=== PATIENT | male | born 1970 | race Caucasian/White ===

== ENCOUNTER 2016-10-26 12:12 | Outpatient (CLI) | payer OTHER | END 2016-10-26 12:13 | disposition home or self-care (01) | DX: Z00.00 Encounter for general adult medical examination without abnormal findings (principal); Z12.5 Encounter for screening for malignant neoplasm of prostate ==

== ENCOUNTER 2016-12-12 17:00 | Outpatient (CLI) | payer OTHER | END 2016-12-12 17:01 | disposition home or self-care (01) | DX: D72.89 Other specified disorders of white blood cells (principal) ==

== ENCOUNTER 2017-07-27 07:21 | Emergency (ER) | payer OTHER ==
[2017-07-27] MEDS ORDERED: SODIUM CHLORIDE 0.9% 1,000 ML IV ONE (07:51)
--- NOTE | 2017-07-27 07:58 | ED Physician Documentation ---
PD HPI GI BLEED - Stated complaint Stated Complaint: MALE - Chief complaint Chief Complaint: Abd Pain - History obtained from History obtained from: Patient - History of Present Illness Timing - onset: How many days ago (2you) Timing - details: Gradual onset Associated symptoms: BRBPR Similar symptoms before: Has not had sx before - Additional information Additional information: The patient is a 46-year-old male who presents with bright red blood per rectum , that started yesterday, and became more pronounced this morning. He first noticed "stomachache" 2 days ago. He developed bloody diarrhea yesterday, without rectal pain. He reports nausea yesterday, without vomiting. He is uncertain about fever. He denies dysuria. He has a past history of hemorrhoids, but states there is no rectal pain or itchiness associated with this episode, and his hemorrhoids have never had this much bleeding. He has had no abdominal surgery. He denies homosexual intercourse. Review of Systems Constitutional: denies: Chills Nose: denies: Congestion Throat: denies: Sore throat Cardiac: denies: Chest pain / pressure Respiratory: denies: Dyspnea, Cough GI: reports: Abdominal Pain, Nausea, Diarrhea, Bloody / black stool. denies: Vomiting : denies: Dysuria Skin: denies: Rash Musculoskeletal: denies: Back pain Neurologic: denies: Generalized weakness, Headache PD PAST MEDICAL HISTORY - Past Medical History Neuro: Headache/migraine, Head injury - Present Medications Home Medications: Ambulatory Orders Medication Instructions Recorded Confirmed Hydrocortisone Acetate [Anucort-Hc] 25 mg RC BID #10 supp.rect 07/27/17 - Allergies Allergies/Adverse Reactions: Allergies Allergy/AdvReac Type Severity Reaction Status Date / Time No Known Drug Allergies Allergy Verified 07/27/17 07:38 - Social History Does the pt smoke?: No Smoking Status: Never smoker PD ED PE NORMAL - Vitals Vital signs reviewed: Yes (normal) - General General: Alert and oriented X 3, Well developed/nourished - HEENT HEENT: Atraumatic, Pharynx benign - Neck Neck: No adenopathy, No JVD - Cardiac Cardiac: RRR, No murmur - Respiratory Respiratory: No respiratory distress, Clear bilaterally - Abdomen Abdomen: Normal bowel sounds, Soft, Non distended, No organomegaly, Other ( Scaphoid abdomen with mild left lower quadrant tenderness to palpation, without rebound or guarding.) - Back Back: No CVA TTP - Derm Derm: No rash - Extremities Extremities: No edema, No calf tenderness / cord - Neuro Neuro: Alert and oriented X 3, No motor deficit, Normal speech Results - Vitals Vitals: Oxygen O2 Source Room air - Labs Labs: Laboratory Tests 07/27/17 07/27/17 07/27/17 08:13 08:13 08:13 WBC 4.6 L RBC 4.64 L Hgb 15.1 Hct 44.0 MCV 94.7 H MCH 32.5 H MCHC 34.3 RDW 12.4 Plt Count 153 MPV 8.7 Neut # 2.2 Lymph # 1.7 [place] # 0.5 Eos # 0.1 Baso # 0.0 Absolute Nucleated RBC 0.00 Nucleated RBC % 0.0 Sodium 136 Potassium 4.2 Chloride 98 L Carbon Dioxide 29 Anion Gap 9.0 BUN 18 Creatinine 0.8 Estimated GFR (MDRD) 104 Glucose 95 Calcium 9.6 Total Bilirubin 1.7 H AST 30 ALT 53 Alkaline Phosphatase 48 Total Protein 7.0 Albumin 4.5 Globulin 2.5 Albumin/Globulin Ratio 1.8 Lipase 21 L Urine Color YELLOW Urine Clarity CLEAR Urine pH 6.0 Ur Specific [place] 1.025 Urine Protein NEGATIVE Urine Glucose (UA) NEGATIVE Urine Ketones NEGATIVE Urine Occult Blood NEGATIVE Urine Nitrite NEGATIVE Urine Bilirubin NEGATIVE Urine Urobilinogen 0.2 (NORMAL) Ur Leukocyte Esterase NEGATIVE Ur Microscopic Review NOT INDICATED Urine Culture Comments NOT INDICATED - Rads (name of study) CT abd/pelvis w/ Radiology: Prelim report reviewed, EMP read contemporaneously, See rad report ( No acute abnormality in the abdomen or pelvis. No findings to explain the patient's symptoms.) PD MEDICAL DECISION MAKING - ED course Complexity details: reviewed results, re-evaluated patient, considered differential, d/w patient ED course: His rectal bleeding is most consistent with internal hemorrhoid. Diverticular bleeding was considered, but is unlikely given that his CT scan is negative. His hemoglobin and hematocrit are normal, as is his white count. Treatment in the emergency department included administration of normal saline 1 L IV. I discussed with him the likely diagnosis, symptomatic treatment and outpatient follow-up, as well as potentially worrisome signs or symptoms that should prompt reevaluation emergency department. He is being discharged with prescription for Anusol HC. Departure - Departure Disposition: Home, Self Care Clinical Impression: Hemorrhoids Qualifiers: Hemorrhoid type: other Qualified Code(s): K64.8 - Other hemorrhoids Condition: Stable Instructions: ANUSOL Suppositories, ED Hemorrhoids Follow-Up: Molly Menjivar MD [Provider Admit Priv/Credential] - Prescriptions: Hydrocortisone Acetate [Anucort-Hc] 25 mg RC BID #10 supp.rect Comments: Wash your anal area with warm soapy water at least twice daily. You can use Anusol HC twice daily as prescribed. Avoid straining when having bowel movement. Followup with your primary physician within 2 weeks. Call to schedule an appointment. Return to the emergency department if you develop increasing abdominal pain, increasing rectal bleeding, or otherwise worsening symptoms. Discharge Date/Time: 07/27/17 10:17
[2017-07-27 08:25] LABS: BILIRUBIN,URINE NEGATIVE (NEGATIVE)
[2017-07-27 08:29] LABS: UA CHARGE (STRIP ONLY) YES; UR CULTURE IF IND NOT INDICATED
[2017-07-27] MEDS ORDERED: IOPAMIDOL-300 100 ML VIAL ONE (08:33)
[2017-07-27 08:52] LABS: BASOPHILS % (AUTO) 0.5 %; EOSINOPHILS # (AUTO) 0.1 10^3/uL (0.0-0.7); EOSINOPHILS % (AUTO) 2.3 %; HGB - HEMOGLOBIN 15.1 g/dL (14.0-18.0); LYMPHOCYTES # (AUTO) 1.7 10^3/uL (1.5-3.5); LYMPHOCYTES % (AUTO) 37.3 %; MEAN CORPUSCULAR HEMOGLOBIN 32.5 pg (27.0-31.0); MEAN CORPUSCULAR HGB CONC 34.3 g/dL (32.0-36.0); MEAN CORPUSCULAR VOLUME 94.7 fL (80.0-94.0); MEAN PLATELET VOLUME 8.7 fL (7.4-11.4); MONOCYTES # (AUTO) 0.5 10^3/uL (0.0-1.0); MONOCYTES % (AUTO) 11.5 %; NEUTROPHILS # (AUTO) 2.2 10^3/uL (1.5-6.6); NEUTROPHILS % (AUTO) 48.4 %; RED BLOOD COUNT 4.64 10^6/uL (4.70-6.10); RED CELL DISTRIBUTION WIDTH 12.4 % (12.0-15.0); UNCORRECTED WHITE BLOOD COUNT 4.6 x10^3/uL; WHITE BLOOD COUNT 4.6 x10^3/uL (4.8-10.8)
[2017-07-27] MEDS ORDERED: IOPAMIDOL-300 100 ML VIAL IVP ONE (08:54)
[2017-07-27 09:06] LABS: ALBUMIN/GLOBULIN RATIO 1.8 (1.0-2.2); BILIRUBIN,TOTAL 1.7 mg/dL (0.2-1.0); CALCIUM 9.6 mg/dL (8.5-10.3); CREATININE 0.8 mg/dL (0.6-1.2); POTASSIUM 4.2 mmol/L (3.5-5.0)
--- NOTE | 2017-07-27 09:21 | CT Preliminary Report ---
Exam: CT ABDOMEN/PELVIS W/ IMPRESSION: No acute abnormality in the abdomen or pelvis. No findings to explain the patient's sympt oms. [facility] SITE ID: [id number]
--- NOTE | 2017-07-27 09:24 | CT Report ---
EXAM: CT ABDOMEN AND PELVIS EXAM DATE: 07/27/2017 09:03 AM. CLINICAL HISTORY: Abdominal pain and bloody stool. COMPARISONS: None. TECHNIQUE: Routine helical CT imaging was performed through the abdomen and pelvis. IV contrast: 100 cc Isovue-300. Enteric contrast: No. Reconstructions: Coronal and sagittal. In accordance with CT protocol optimization, one or more of the following dose reduction techniques w ere utilized for this exam: automated exposure control, adjustment of mA and/or KV based on patient s ize, or use of iterative reconstructive technique. FINDINGS: Lung Bases: Within normal limits. Liver: Normal. Gallbladder/Bile Ducts: Within normal limits. Spleen: Normal. Pancreas: Normal. Adrenal Glands: Normal. Kidneys: Within normal limits. Peritoneal Cavity/Bowel: No bowel obstruction or abnormal stool burden. No focal inflammatory fat str anding. The appendix is not visualized and there are surgical clips in the right lower quadrant, poss ibly reflecting prior appendectomy. No ascites or pneumoperitoneum. Pelvic Organs: Normal. The bladder and visualized pelvic organs are within normal limits. Vasculature: Normal. Bones: Within normal limits. Other: None. IMPRESSION: No acute abnormality in the abdomen or pelvis. No findings to explain the patient's sympt oms. [facility] Referring Provider Line: [phone] SITE ID: [id number]
[2017-07-27 09:41] VITALS: BP 113/69
== END 2017-07-27 10:17 | disposition home or self-care (01) ==
LOC: ED 07:21
DX: K64.8 Other hemorrhoids (principal)
CPT/HCPCS: 36415; 74177; 80053; 81003; 83690; 85025; 96360; 99283; 99284; Q9967; 81001; 87086

== ENCOUNTER 2018-03-28 08:03 | Outpatient (CLI) | payer OTHER ==
[2018-03-28 12:44] LABS: BASOPHILS % (AUTO) 0.7 %; EOSINOPHILS # (AUTO) 0.1 10^3/uL (0.0-0.7); EOSINOPHILS % (AUTO) 2.9 %; HGB - HEMOGLOBIN 14.6 g/dL (14.0-18.0); LYMPHOCYTES # (AUTO) 1.5 10^3/uL (1.5-3.5); LYMPHOCYTES % (AUTO) 42.2 %; MEAN CORPUSCULAR HEMOGLOBIN 33.7 pg (27.0-31.0); MEAN CORPUSCULAR VOLUME 99.2 fL (80.0-94.0); MEAN PLATELET VOLUME 9.6 fL (7.4-11.4); MONOCYTES # (AUTO) 0.4 10^3/uL (0.0-1.0); MONOCYTES % (AUTO) 12.2 %; NEUTROPHILS # (AUTO) 1.5 10^3/uL (1.5-6.6); PLT - PLATELET COUNT 144 10^3/uL (130-450); RED BLOOD COUNT 4.32 10^6/uL (4.70-6.10); RED CELL DISTRIBUTION WIDTH 12.7 % (12.0-15.0); WHITE BLOOD COUNT 3.6 x10^3/uL (4.8-10.8)
[2018-03-28 13:16] LABS: ALBUMIN 4.2 g/dL (3.2-5.5); ALBUMIN/GLOBULIN RATIO 1.5 (1.0-2.2); ALKALINE PHOSPHATASE 41 IU/L (42-121); ALT ALANINE AMINOTRANSFERASE 31 IU/L (10-60); AST ASPARTATE AMINOTRANSFERASE 32 IU/L (10-42); BILIRUBIN,TOTAL 2.2 mg/dL (0.2-1.0); BUN - BLOOD UREA NITROGEN 19 mg/dL (6-20); CALCIUM 9.2 mg/dL (8.5-10.3); CARBON DIOXIDE - CO2 29 mmol/L (21-32); CHLORIDE 101 mmol/L (101-111); CHOL/HDL RATIO 2.5 (<5.0); CHOLESTEROL 160 mg/dL; CREATININE 0.8 mg/dL (0.6-1.2); GFR - MDRD 104 (>89); GLUCOSE 96 mg/dL (70-100); HDL CHOLESTEROL 65 mg/dL; SODIUM 136 mmol/L (135-145)
[2018-03-28 13:37] LABS: HB2 TOTAL 15.7 g/dL; HEMOGLOBIN A1C 0.53 g/dL; HEMOGLOBIN A1C % 5.2 % (4.6-6.2)
[2018-03-28 13:39] LABS: LDL CHOLESTEROL,DIRECT 92 mg/dL; LDLD/HDL RATIO 1.4 (<3.6)
== END 2018-03-28 08:04 | disposition home or self-care (01) ==
LOC: LAB.WCP 08:03
PROVIDERS: ATTEND Physician Assistant
DX: Z00.00 Encounter for general adult medical examination without abnormal findings (principal); R35.1 Nocturia
CPT/HCPCS: 36415; 80053; 80061; 83036; 83721; 84153; 84443; 85025